=== PATIENT | male | born 1950 | race Caucasian/White ===

== ENCOUNTER → 2017-08-30 | Outpatient (CLI) | payer BC ==
[~2017-08-30] MED LIST: ALBU1AER9 INH; AMLO-114 PO; ASPCH81X PO; DABI150C PO; DIGE1CAP10 PO; FRS/40 PO; LISI40TA PO; MAGN400T6 PO; MISCCAP80 PO; MISCTAB78 PO; MULT-506 PO; SULF800T23 PO; TPRSR/100 PO; [UNRECOGNIZED DRUG - CODE] PO
[2017-08-30 09:49] LABS: BASO % 0.6 %; BASO ABS # 0.03 K/uL (0-0.2); COMPLETE YES; EOS % 6.7 %; HEMATOCRIT 30.5 % (42-52); IG% 0.2 %; LYMPH % 23.7 %; LYMPH ABS # 1.16 K/uL (1.2-3.4); MEAN CELL VOLUME 83.8 fL (80-100); MEAN CORPUSCULAR HEMOGLOBIN 26.9 pg (25-34); MEAN CORPUSCULAR HGB CONC 32.1 g/dl (32-36); MEAN PLATELET VOLUME 8.6 fL (7.4-10.4); MONO % 14.9 %; NEUT % 53.9 %; PLATELET COUNT 230 K/uL (130-400); RED BLOOD COUNT 3.64 M/uL (4.7-6.1)
[2017-08-30 10:19] LABS: AST/SGOT 19 U/L (15-37); BLOOD UREA NITROGEN 12 mg/dl (7-18); BUN/CREATININE RATIO 14.7 (10-20); CALCIUM 8.3 mg/dl (8.5-10.1); CARBON DIOXIDE 26 mmol/L (21-32); CHLORIDE 94 mmol/L (98-107); CREATININE 0.85 mg/dl (0.60-1.40); GLUCOSE 82 mg/dl (70-99); POTASSIUM 4.2 mmol/L (3.5-5.1); SODIUM 126 mmol/L (136-145)
[2017-08-30 10:24] LABS: ALT/SGPT 16 U/L (12-78); CHOLESTEROL 104 mg/dl (0-200); CHOLESTEROL/HDL RATIO 1.3; HDL CHOLESTEROL 79 mg/dl; LDL CHOLESTEROL CALCULATED 20 mg/dl; TOTAL IRON BINDING CAPACITY 346 mcg/dl (250-450); TRIGLYCERIDES 26 mg/dl (0-150); VERY LOW DENSITY LIPOPROT CALC 5 mg/dl
== END | disposition home or self-care (01) ==
LOC: C.LAB 08:37
PROVIDERS: ATTEND Family Medicine
DX: I48.91 Unspecified atrial fibrillation (principal); I11.0 Hypertensive heart disease with heart failure; E87.1 Hypo-osmolality and hyponatremia; I50.32 Chronic diastolic (congestive) heart failure; Z12.5 Encounter for screening for malignant neoplasm of prostate

== ENCOUNTER 2017-11-26 10:12 | Inpatient (IN) | payer BC, OTHER ==
[~2017-11-26] VITALS: Ht 182.9 cm; Wt 106.1 kg
[~2017-11-26 10:12] MED LIST changes: -AMLO-114 PO; -SULF800T23 PO
[2017-11-26 11:13] VITALS: BP_SYST 181; BP_SYST 195; BP_DIAS 116; PULSE 52; TEMP 36.5; O2SAT 100
[2017-11-26] MEDS ORDERED: CLINDAMYCIN IV 600 MG in DEXTROSE 5% 50ML 50 ML IV SCH (11:30)
[2017-11-26] MEDS ORDERED: MAGNESIUM HYDROXIDE SUSP 30 ML UDC PO PRN (11:30)
[2017-11-26] MEDS ORDERED: TRAMADOL HCL 50 MG TAB PO PRN (11:30)
[2017-11-26] MEDS ORDERED: ALBUTEROL HFA 8 GM INHALER INH PRN (11:30)
[2017-11-26] MEDS ORDERED: HEPARIN SOD 5000 UNIT/0.5 ML CARP SQ SCH (11:30)
[2017-11-26] MEDS ORDERED: ZOLPIDEM TARTRATE 5 MG TAB PO PRN (11:30)
[2017-11-26] MEDS ORDERED: ALUMINUM/MAGNESIUM/SIMETH (MAALOX MAX) 30 ML UDC PO PRN (11:30)
[2017-11-26] MEDS ORDERED: ONDANSETRON INJ 2 MG/ML 2 ML VIAL IV PRN (11:30)
[2017-11-26 11:35] VITALS: BP 195/116; PULSE 52; TEMP 36.5; Ht 182.9 cm; Wt 106.1 kg
[2017-11-26] MEDS ORDERED: POLYETHYLENE (MIRALAX) 17 GM PACK PO PRN (11:45)
--- NOTE | 2017-11-26 11:48 | History and Physical ---
History & Physical Date & Time of Service: Nov 26, 2017 at 11:38 Chief Complaint: Bilateral Lower Extremity Cellulitis Primary Care Physician: Luis Angel Griffiths M.D. History of Present Illness Source: patient 67 y/o M Hx diastolic CHF, AF, HTN, Qnwukpw-Uhwqa-Aosrx, chronic LE ulcers. Presents from wound care clinic due to BL lower ext cellulitis. Recent wound cultures did not show any growth, however, cultures from 10/29 revealed MSSA. He denies fevers or rigors. Labs are not available at the time of admission as he was sent directly from the clinic. Past Medical/Surgical History 1) Chronic diastolic CHF 2) Atrial fibrillation 3) Hyponatremia 4) HTN 5) Chronic AF 6) Sigmoid volvulus 7) Bvzkxyu-Vnvkb-Igagd Family History Father with CMT - at age 94 Social History Smoking Status: Never Smoker Drug Use: none Marital Status: Occupational Status: retired Allergies Coded Allergies: Ampicillin (Verified Allergy, Unknown, rash, 05/24/17) Sulbactam (Verified Allergy, Unknown, rash, 05/24/17) Home Medications Scheduled Aspirin (Aspirin Chewable), 81 MG PO QAM Dabigatran Etexilate Mesylate (Pradaxa), 150 MG PO BID Digestive Enzymes (Digestive Enzyme), 1 CAP PO QAM Furosemide (Lasix), 1 TAB PO QAM Lisinopril (Zestril), 80 MG PO QAM Magnesium Oxide (Mag-Ox), 3 TAB PO BID Metoprolol Succinate (Metoprolol Succinate ER), 1 TAB PO QAM Misc Natural Products (Osteo Bi-Flex Advanced Do), 1 TAB PO QAM Multivitamin (Multivitamin), 1 TAB PO QAM Probiotic Product (Probiotic), 1 CAP PO QAM Simethicone (Cvs Gas Relief), 1 TAB PO QAM Scheduled PRN Albuterol (Proair Hfa), 1-2 PUFFS INH BID PRN for Shortness of Breath Review of Systems Constitutional: No fever, No chills, No sweats Eyes: No worsening of vision ENT: No hearing loss, No unusual epistaxis, No nasal symptoms Respiratory: No cough, No sputum, No wheezing Cardiovascular: No chest pain Abdomen: No pain, No nausea, No vomiting Musculoskeletal: No joint pain Genitourinary - Male: No hematuria, No dysuria Neurologic: + weakness (chronic LE weakness), No memory loss, No paralysis Psychiatric: No depression symptoms Endocrine: No fatigue Hematologic / Lymphatic: No abnormal bleeding/bruising Integumentary: + rash (LE cellulitis and chronic ulcers as above) Physical Exam Vital Signs Date Time Temp Pulse Resp B/P (MAP) Pulse Ox O2 Delivery O2 Flow Rate FiO2 11/26/17 11:13 36.5 52 18 181/116 (137) 100 Room Air 195/116 (142) General Appearance: WD/WN, no apparent distress Head: normocephalic Eyes: normal inspection ENT: normal ENT inspection, pharynx normal Neck: supple, no JVD Respiratory/Chest: chest non-tender, lungs clear, normal breath sounds Cardiovascular: no edema, no gallop, + irregularly irregular Abdomen/GI: normal bowel sounds, non tender, soft Back: normal inspection, no CVA tenderness Extremities/Musculoskelatal: + pedal edema (Significant BL edema - stasis changes - moderate ulcers on mid lower ext - ant on L - lat on R) Neurologic/Psych: business analytics manager II-XII nml as tested, no motor/sensory deficits, alert, oriented x 3 Skin: + pertinent finding (Stasis changes with hyperpigmentaion - moderate ulcers on mid lower ext - ant on L - lat on R - minimal cellulitis extedning from wounds) Diagnostics Laboratory Results Results Past 24 Hours Test 11/26/17 11:26 Range/Units Impression Assessment and Plan 67 y/o M Hx diastolic CHF, AF, HTN, Umykszl-Qqiuu-Sytax, chronic LE ulcers. Presents from wound care clinic due to BL lower ext cellulitis. Recent wound cultures did not show any growth, however, cultures from 10/29 revealed MSSA. He denies fevers or rigors. 1) Lower extremity cellulitis. Pending results of repeat cultures, the pt is placed on Vanc and Ceftriaxone. We will consult wound care. There does not appear to be indication for debridement at present. 2) CHF - chronic diastolic - Cont B ja and Lasix. 3) HTN - Metoprolol, Lisinopril, Lasix 4) AF - anticoagulated with Pradaxa - rate controlled with Metoprolol 5) History of hypoNa - labs pending on admission full code - Pradaxa prophylaxis Total time for this admit including review of labs, meds, records - discussion with pt - 36 min Level of Care Med/Surg Resuscitation Status FULL RESUSCITATION VTE Prophylaxis VTE Risk Assessment Done? Y/N: Yes Risk Level: Moderate Given or contraindicated: Other Anticoagulation
[2017-11-26] MEDS ORDERED: VANCOMYCIN CONSULT ACTIVE PRN (12:00)
[2017-11-26 12:10] LABS: HEMATOCRIT 33.1 % (42-52); HEMOGLOBIN 10.9 g/dL (14.0-18.0); MEAN CELL VOLUME 84.9 fL (80-100); MEAN CORPUSCULAR HEMOGLOBIN 27.9 pg (25-34); MEAN CORPUSCULAR HGB CONC 32.9 g/dl (32-36); RED CELL DISTRIBUTION WIDTH SD 49.6 fL (36.4-46.3); WHITE BLOOD COUNT 7.37 K/uL (4.8-10.8)
[2017-11-26 12:29] LABS: MEAN PLATELET VOLUME 9.2 fL (7.4-10.4); PLATELET COUNT 70 K/uL (130-400)
[2017-11-26 12:30] LABS: CALCIUM 8.5 mg/dl (8.5-10.1); CREATININE 0.69 mg/dl (0.60-1.40); POTASSIUM 3.8 mmol/L (3.5-5.1)
--- NOTE | 2017-11-26 12:43 | Pharmacy Progress Note ---
Pharmacy Abx Initial Consult Date of Service Nov 26, 2017. Pharmacy Dosing Scope Date of Consult: 11/26/17 Consultation requested by: Dr. Rodriguez Pharmacy is consulted to initiate vancomycin IV dosing therapy, order appropriate labs and adjust drug dose/frequency. Subjective The patient is a 67 year old male admitted on Nov 26, 2017 at 10:56. Objective Height (Feet): 6 Height (Inches): 0.00 Weight (Kilograms): 106.360 Vital Signs (Past 12Hrs) Vital Signs Past 12 Hours Date Time Temp Pulse Resp B/P (MAP) Pulse Ox O2 Delivery O2 Flow Rate FiO2 11/26/17 11:35 36.5 52 18 195/116 Room Air 11/26/17 11:13 36.5 52 18 181/116 (137) 100 Room Air 195/116 (142) Lab Results (24Hrs) Laboratory Tests (24 Hours) Test 11/26/17 11:43 White Blood Count 7.37 K/uL (4.8-10.8) Risk Factors for Resistance * follows with wound clinic so at risk for MRSA Assessment & Plan Assessment 67 year old male with a PMH of CHF, Afib, and HTN admitted with worsening chronic wound infection. All previous cultures have grown MSSA> Plan vancomycin for treatment of SSTI Vancomycin IV * Loading dose: 2750 mg (25 mg/kg) * Maintenance dose: 1500 mg IV (15 mg/kg) every 10 hours (population pharmacokinetics suggests patient has half-life of 8 hours... due to lower trough needed less aggressive regimen utilized) * Goal trough level for SSTI without history of MRSA : 10 to 15 mcg/mL * Trough ordered for 11/28/17 Pharmacy will continue to follow and will adjust dose/frequency as necessary. Thank you.
[2017-11-26] MEDS ORDERED: VANCOMYCIN IV 2,750 MG in SODIUM CHLORIDE 0.9% 500ML 500 ML IV ONE (13:00)
[2017-11-26] MEDS: CEFTRIAXONE SOD INJ 1 GM in DEXTROSE 5% ADD-VANTAGE 50ML 50 ML IV SCH (14:15)
[2017-11-26 15:40] VITALS: BP 175/86; PULSE 56; TEMP 37.2; O2SAT 97
[2017-11-26 16:00] VITALS: O2SAT 97
--- NOTE | 2017-11-26 16:38 | NUR ---
SYMONE received WO notification for skin breakdown, at risk nutrition screen completed. Addendum: 11/26/17 at [address] Amended: Links added.
[2017-11-26] MEDS ORDERED: DAPTOMYCIN CONSULT ACTIVE PRN (18:00)
--- NOTE | 2017-11-26 18:00 | NUR ---
A: Vancomycin Discontinued by MD after patient had a reaction of hives to the arm that had the vancomycin infusing into it. The rash developed soon after starting the vancomycin and was itchy. On assessment the vancomycin was stopped immediately. Pt denies respiratory distress and the rash quickly disappeared after the vancomycin was removed. MD made aware. Will continue to monitor.
[2017-11-26 19:00] VITALS: BP 174/90
[2017-11-26] MEDS ORDERED: DAPTOmycin IV 425 MG in SODIUM CHLORIDE 0.9% 50ML 50 ML IV SCH (19:00)
[2017-11-26] MEDS: HydrALAZINE HCL 20 MG/ML VIAL IV. PRN (19:02)
[2017-11-26] MEDS: DAPTOmycin IV 450 MG in SYRINGE 0 ML IV SCH (19:05)
[2017-11-26] MEDS: ACETAMINOPHEN 325 MG TAB PO PRN (19:51)
[2017-11-26] MEDS: DABIGATRAN ELEXILATE 75 MG CAP PO SCH (19:55)
[2017-11-26] MEDS: MAGNESIUM OXIDE 400 MG TAB PO SCH (19:56)
[2017-11-26] MEDS ORDERED: VANCOMYCIN IV 1,500 MG in SODIUM CHLORIDE 0.9% 500ML 500 ML IV SCH (23:00)
[2017-11-26 23:55] VITALS: BP 154/89; PULSE 62; TEMP 36.6; O2SAT 96
--- NOTE | 2017-11-27 00:24 | NUR ---
ID Note: patient resting in bed. alert and oriented x4. no complaints of pain at this time. IV SL. lungs clear on RA, denies cough, shortness of breath or chest pain. positive bowel sounds, denies flatus, nausea/vomiting. tolerating AHA diet. pulses palpable, c/o baseline numbness BLE, denies tingling. oob with 1 assist and walker/braces. discharge uncertain at this time. call mclain in reach. will continue to monitor.
[2017-11-27 07:24] VITALS: BP 169/91; PULSE 47; TEMP 36.9; O2SAT 98
[2017-11-27 07:35] VITALS: PULSE 62
[2017-11-27] MEDS: ASPIRIN 81 MG ECTAB PO SCH (07:38)
[2017-11-27] MEDS: MAGNESIUM OXIDE 400 MG TAB PO SCH ×2 (07:38→19:48)
[2017-11-27] MEDS: LACTOBACILLUS ACIDOPHILUS (FLORANEX) TAB PO SCH (07:39)
[2017-11-27] MEDS: FUROSEMIDE 40 MG TAB PO SCH (07:39)
[2017-11-27] MEDS: METOPROLOL SUCC 50MG EXT REL TAB PO SCH (07:39)
[2017-11-27] MEDS: LISINOPRIL 40 MG TAB PO SCH (07:39)
[2017-11-27] MEDS: DABIGATRAN ELEXILATE 75 MG CAP PO SCH ×2 (07:39→19:47)
[2017-11-27] MEDS ORDERED: SIMETHICONE 80 MG CHEW PO SCH (08:00)
[2017-11-27 08:36] LABS: CALCIUM 8.5 mg/dl (8.5-10.1); POTASSIUM 3.3 mmol/L (3.5-5.1)
[2017-11-27] MEDS: SIMETHICONE 80 MG CHEW PO SCH (08:36)
[2017-11-27 08:40] LABS: HEMOGLOBIN 10.9 g/dL (14.0-18.0); MEAN CELL VOLUME 85.1 fL (80-100); MEAN CORPUSCULAR HEMOGLOBIN 28.1 pg (25-34); RED CELL DISTRIBUTION WIDTH CV 16.1 % (11.5-14.5); RED CELL DISTRIBUTION WIDTH SD 50.2 fL (36.4-46.3); WHITE BLOOD COUNT 4.22 K/uL (4.8-10.8)
[2017-11-27 08:43] LABS: MEAN PLATELET VOLUME 9.5 fL (7.4-10.4); PLATELET COUNT 74 K/uL (130-400)
[2017-11-27 08:45] LABS: CREATININE 0.64 mg/dl (0.60-1.40)
--- NOTE | 2017-11-27 09:34 | Progress Note ---
Progress Note Date of Service Nov 27, 2017. Progress Note ID Consult Dictated #[id number] A/P: 1. LE cellulitis -Agree with dapto and rocephin, follow cultures -Local wound care -thank you
--- NOTE | 2017-11-27 10:00 | NUR ---
Dressing changed to bilateral lower extremities. Bilateral legs cleansed with saline. Aquacel AG applied to ulcerations/wounds on both legs. 4X4 applied, Kerlix applied. Dressings dated, timed and initialed. Pt tolerated dressing change fine.
--- NOTE | 2017-11-27 10:34 | INFECT. DISEASE CONSULTATION ---
DATE OF CONSULTATION: 11/27/2017 HISTORY OF PRESENT ILLNESS: The patient was admitted yesterday from the wound care center for worsening right lower extremity ulceration. His was at the bedside during my examination. She states he has been on Differin and antibiotics most recently, she believes doxycycline for chronic left and right lower extremity ulcerations. There are new ulcerations on the right, which are painful, which are what led to his hospitalization yesterday. She states he has been off of antibiotics for at least 1-1/2 to 2 weeks. He did have some subjective fevers and chills at home prior to admission. He is still having some pain in the right lower extremity. His dressings are in place; however, there are some areas of dried blood. They do admit weeping drainage from the area. A wound culture was sent from the wound center yesterday; however, it does not appear that a specimen was received in the micro lab. He was started on Rocephin and vancomycin yesterday, but had some rash on his arm. He states he has tolerated this multiple times in the past. His vancomycin was subsequently held and now daptomycin was ordered. Because of this, an ID consult was warranted. He was not seen by ID in the wound center prior to this. He currently is afebrile. He has no chest pain, cough, shortness of breath, nausea, vomiting, or diarrhea. His remaining review of systems is unremarkable. PAST MEDICAL HISTORY: Significant for congestive heart failure, AFib, hypertension, Lhjvuui-Qmtaf-Lmsjv, chronic lower extremity ulcers for which he follows at the wound care center. His most recent culture from the grew MSSA, which was resistant to clindamycin and doxycycline. A culture on November 12 was no growth and final. His culture yesterday does not appear to have been received in the lab. FAMILY HISTORY: Noncontributory. SOCIAL HISTORY: Negative for tobacco use, alcohol use or drug use. ALLERGIES: HE HAS ALLERGY TO UNASYN. MEDICATIONS: Include aspirin, Lasix, lisinopril, Toprol-XL, Floranex, Pradaxa, daptomycin, hydralazine, Rocephin, MiraLax, Tylenol, Maalox, milk of magnesia, Ambien, Zofran, albuterol, and Ultram. PHYSICAL EXAMINATION: VITAL SIGNS: He is afebrile, pulse 62, respiratory rate 18, blood pressure 169/91, oxygen saturation is 98% on room air. GENERAL: He is awake, alert, and oriented x3. He is in no acute distress. HEENT: Mucous membranes are moist. Extraocular muscles are intact. HEART: Regular. LUNGS: Clear bilaterally. ABDOMEN: Soft, nontender, and nondistended. EXTREMITIES: There are bilateral lower extremity dressings. SKIN: There are chronic skin ulceration changes. LABORATORY STUDIES: CBC today reveals a white blood cell count of 4.2, hemoglobin 10.9 and platelets of 74. Chemistry panel reveals a sodium of 128, potassium 3.3, chloride 92, bicarbonate 32, BUN 10, creatinine 0.6 and glucose of 90. No cultures were obtained. No imaging was done. ASSESSMENT AND PLAN: Chronic lower extremity ulcerations with history of methicillin-sensitive Staphylococcus aureus. Repeat wound culture should be sent as it does not appear that the wound culture was received from the wound center yesterday. He will remain on Rocephin and daptomycin, pending additional micro data. Thank you for this consultation.
[2017-11-27] MEDS ORDERED: POTASSIUM CHLORIDE 20 MEQ TABCR PO ONE (11:56)
[2017-11-27] MEDS: CEFTRIAXONE SOD INJ 1 GM in DEXTROSE 5% ADD-VANTAGE 50ML 50 ML IV SCH (12:37)
--- NOTE | 2017-11-27 12:43 | Hospitalist Progress Note ---
Hospitalist Progress Note Date of Service Nov 27, 2017. Subjective Pt evaluation today including: conversation w/ patient, conversation w/ family ( at bedside), physical exam, chart review, lab review, review of inpatient medication list Pain: RLE sore PO Intake: Tolerating PO diet Voiding: no voiding problems Patient seen with at bedside. requests to change patient's dressings on lower extremities herself as she does them at home. Will provide necessary materials as wound care not currently in house. The patient states that he believes he may have been feverish a few days ago when he had chills and sweats but could not check his temperature. He has not had any further fevers since then. He does complain of intermittent dull pain in his right lower extremity, particularly the back of his calf. This pain is exacerbated by pressure/ palpation. He notes that his right lower leg appears more swollen and red than usual. The patient reports chronic numbness in his feet bilaterally. The patient denies fevers, chills, sweats, chest pain, palpitations, claudication, cough, wheezing, shortness of breath, nausea, vomiting, abdominal pain, dysuria , hematuria, urinary retention, paralysis, weakness. Additional Comments: See HPI for pertinent positives and negatives. All other systems reviewed and negative. Objective Vital Signs Date Time Temp Pulse Resp B/P (MAP) Pulse Ox O2 Delivery O2 Flow Rate FiO2 11/27/17 08:00 Room Air 11/27/17 07:35 62 11/27/17 07:24 36.9 47 18 169/91 (117) 98 11/26/17 23:55 36.6 62 20 154/89 (110) 96 Room Air 11/26/17 23:40 Room Air 11/26/17 19:00 174/90 (118) 11/26/17 16:00 97 Room Air 11/26/17 15:40 37.2 56 18 175/86 (115) 97 Room Air 11/26/17 13:45 Room Air Physical Exam Notes: General appearance: +Obese. Well-developed, well-nourished, no apparent distress Head: Normocephalic, atraumatic Eyes: Normal inspection, PERRL, EOMI ENT: Normal ENT inspection, hearing grossly normal, pharynx normal Neck: Supple, no JVD, trachea midline Respiratory/Chest: Lungs clear to auscultation, normal breath sounds, no respiratory distress Cardiovascular: +Irregularly irregular, rate controlled. No gallop, no murmur Abdomen/GI: +Distended. This is a chronic cyclical issue. Umbilical hernia. Normal bowel sounds, non-tender Extremities/Musculoskeletal: +1+ pitting edema. RLE with open wound at back of calf with surrounding erythema/dusky color. Warm to the touch and tender to palpation. Chronic venous stasis changes bilaterally. Neurological/Psych: Alert, normal mood/affect, oriented x 3 Skin: Normal color, warm/dry, no rash Laboratory Results Last 24 Hours Test 11/27/17 07:25 White Blood Count 4.22 K/uL Red Blood Count 3.88 M/uL Hemoglobin 10.9 g/dL Hematocrit 33.0 % Mean Corpuscular Volume 85.1 fL Mean Corpuscular Hemoglobin 28.1 pg Mean Corpuscular Hemoglobin Concent 33.0 g/dl RDW Standard Deviation 50.2 fL RDW Coefficient of Variation 16.1 % Platelet Count 74 K/uL Mean Platelet Volume 9.5 fL Sodium Level 128 mmol/L Potassium Level 3.3 mmol/L Chloride Level 92 mmol/L Carbon Dioxide Level 32 mmol/L Anion Gap 5.0 mmol/L Blood Urea Nitrogen 10 mg/dl Creatinine 0.64 mg/dl Est Creatinine Clear Calc Drug Dose 144.9 ml/min Estimated GFR () 119.1 Estimated GFR (Non- 102.7 BUN/Creatinine Ratio 15.1 Random Glucose 90 mg/dl Calcium Level 8.5 mg/dl Assessment and Plan 67 y/o male with history of a-fib, HTN, chronic diastolic CHF, Charcot-Emely- Tooth, chronic hyponatremia, BPH, iron deficiency anemia, chronic LE ulcers and colitis who presents from the wound care clinic with cellulitis. Right lower extremity cellulitis, chronic LE ulcers--ongoing -Admit to med/surg -Initially started on vancomycin but developed hives/itching at IV site. Vanc d /c'd and added to allergy list -Continue daptomycin and Rocephin 1 gm IV qd -Infectious disease consulted, appreciate recs: continue current abx pending further micro studies -Outpatient wound culture from 11/26 positive for staph aureus, sensitivities pending -Wound care nurse consulted -Pt debrided by Dr. Cartagena prior to arrival on 11/26 A-fib, HTN, chronic diastolic CHF--stable. Rate controlled, no acute exacerbation of CHF. BP improving -Continue ASA, Pradaxa 150 mg PO BID, Toprol XL 100 mg PO qd, lisinopril 80 mg PO qd, and Lasix 40 mg PO qd Hypokalemia -Potassium 3.3 on 11/27 -KCl 20 mEq PO BID, one dose now Hyponatremia--stable, at baseline Iron deficiency anemia--stable, hgb at baseline -Iron studies pending Abdominal distention, colitis--chronic, ongoing. Unknown etiology of colitis, although outpt records state ulcerative colitis, recent colonoscopy April 2017 just shows redundant and tortuous colon -Continue simethicone, digestive enzymes, fleet enema 3x/week DVT prophylaxis -Pradaxa Code Status -Level I, FULL RESUSCITATION STATUS
[2017-11-27 15:56] VITALS: BP 168/92; PULSE 52; TEMP 36.8; O2SAT 97
[2017-11-27] MEDS: ACETAMINOPHEN 325 MG TAB PO PRN ×2 (16:54→22:38)
--- NOTE | 2017-11-27 17:00 | NUR ---
A: Pt's s/o requested Coban Lite and Cast Padding for compression dressing d/t not having any at home. Both items placed in room for s/o to apply in morning. Will monitor.
[2017-11-27] MEDS: DAPTOmycin IV 450 MG in SYRINGE 0 ML IV SCH (19:46)
[2017-11-27] MEDS: POTASSIUM CHLORIDE 20 MEQ TABCR PO SCH (19:48)
[2017-11-27] MEDS: HydrALAZINE HCL 20 MG/ML VIAL IV. PRN (22:39)
[2017-11-27 22:44] VITALS: BP 166/111; PULSE 60
[2017-11-27 23:27] VITALS: BP 149/85; PULSE 51; TEMP 36.5; O2SAT 95
--- NOTE | 2017-11-28 01:40 | NUR ---
ID NOTE: Alert and oriented x4. Tolerating an AHA diet. Ambulates with 1 assist. IV is saline locked. Voiding without difficulty. No complaints of pain. Discharge plans uncertain at this time.
[2017-11-28] MEDS ORDERED: VANCOMYCIN TROUGH ONE (04:30)
[2017-11-28 05:23] LABS: HEMATOCRIT 31.6 % (42-52); HEMOGLOBIN 10.5 g/dL (14.0-18.0); MEAN CELL VOLUME 84.9 fL (80-100); MEAN CORPUSCULAR HEMOGLOBIN 28.2 pg (25-34); MEAN CORPUSCULAR HGB CONC 33.2 g/dl (32-36); RED CELL DISTRIBUTION WIDTH CV 15.9 % (11.5-14.5); RED CELL DISTRIBUTION WIDTH SD 49.2 fL (36.4-46.3); WHITE BLOOD COUNT 3.71 K/uL (4.8-10.8)
[2017-11-28 05:25] LABS: MEAN PLATELET VOLUME 9.1 fL (7.4-10.4); PLATELET COUNT 76 K/uL (130-400)
[2017-11-28 05:50] LABS: CALCIUM 8.3 mg/dl (8.5-10.1); CREATININE 0.72 mg/dl (0.60-1.40); POTASSIUM 3.8 mmol/L (3.5-5.1)
[2017-11-28 07:08] VITALS: BP 182/92; PULSE 58; TEMP 36.5; O2SAT 96
[2017-11-28] MEDS: METOPROLOL SUCC 50MG EXT REL TAB PO SCH (07:40)
[2017-11-28] MEDS: LACTOBACILLUS ACIDOPHILUS (FLORANEX) TAB PO SCH (07:40)
[2017-11-28] MEDS: ASPIRIN 81 MG ECTAB PO SCH (07:40)
[2017-11-28] MEDS: MAGNESIUM OXIDE 400 MG TAB PO SCH ×2 (07:41→19:28)
[2017-11-28] MEDS: FUROSEMIDE 40 MG TAB PO SCH (07:41)
[2017-11-28] MEDS: POTASSIUM CHLORIDE 20 MEQ TABCR PO SCH ×2 (07:41→19:27)
[2017-11-28] MEDS: SIMETHICONE 80 MG CHEW PO SCH (07:41)
[2017-11-28] MEDS: DABIGATRAN ELEXILATE 75 MG CAP PO SCH ×2 (07:41→19:28)
[2017-11-28] MEDS: LISINOPRIL 40 MG TAB PO SCH (07:41)
[2017-11-28] MEDS ORDERED: SOD PHOSPHATE/SOD BIPHOSPHATE ENEMA 132 ML BTL PR PRN (08:00)
[2017-11-28 12:15] VITALS: BP 168/86; PULSE 60
[2017-11-28] MEDS: CEFTRIAXONE SOD INJ 1 GM in DEXTROSE 5% ADD-VANTAGE 50ML 50 ML IV SCH (12:19)
[2017-11-28] MEDS: HydrALAZINE HCL 20 MG/ML VIAL IV. PRN (12:19)
[2017-11-28] MEDS: ACETAMINOPHEN 325 MG TAB PO PRN ×2 (12:19→22:09)
--- NOTE | 2017-11-28 13:13 | Progress Note ---
Subjective Date of Service: Nov 28, 2017. Subjective Pt evaluation today including: conversation w/ patient, conversation w/ family (), physical exam, lab review, review of inpatient medication list Pain: pain in right leg PO Intake: adequate Voiding: no voiding problems right leg press and blow machine tender, but redness and warmth decreased left leg now dressed appropriately by eating well, planning for Fleets Enema today to move bowels wound culture with MSSA, will defer to infectious disease for final recommendations Review of Systems Constitutional: + weakness, + fatigue Cardiac: + edema Musculoskeletal: + problem reported (right lower leg pain) Skin: + rash (venous stasis changes, right leg erythema, multiple lesions) All Other Systems: Reviewed and Negative Medications Current Inpatient Medications Medications (Trade) Dose Ordered Sig/Keren Route Start Time Stop Time Status Last Admin Dose Admin Acetaminophen (Tylenol Tab) 650 mg Q4H PRN PO 11/26/17 11:30 12/26/17 11:29 11/28/17 12:19 650 MG Al Hydrox/Mg Hydrox/Simethicone (Maalox Max Susp) 15 ml Q4H PRN PO 11/26/17 11:30 12/26/17 11:29 Magnesium Hydroxide (Milk Of Magnesia Susp) 30 ml Q6H PRN PO 11/26/17 11:30 12/26/17 11:29 Polyethylene (Miralax Powder Packet) 17 gm DAILY PRN PO 11/26/17 11:45 12/26/17 11:44 Zolpidem Tartrate (Ambien Tab) 5 mg HSZ PRN PO 11/26/17 11:30 12/26/17 11:29 Ondansetron HCl (Zofran Inj) 4 mg Q6H PRN IV 11/26/17 11:30 12/26/17 11:29 Albuterol (Ventolin Hfa Inhaler) 2 puffs Q6H PRN INH 11/26/17 11:30 12/26/17 11:29 Aspirin (Ecotrin Tab) 81 mg QAM PO 11/27/17 08:00 12/27/17 07:59 11/28/17 07:40 81 MG Dabigatran (Pradaxa Cap) 150 mg BID PO 11/26/17 20:00 12/26/17 19:59 11/28/17 07:41 150 MG Furosemide (Lasix Tab) 40 mg QAM PO 11/27/17 08:00 12/27/17 07:59 11/28/17 07:41 40 MG Lisinopril (Zestril Tab) 80 mg QAM PO 11/27/17 08:00 12/27/17 07:59 11/28/17 07:41 80 MG Magnesium Oxide (Mag-Ox Tab) 1,200 mg BID PO 11/26/17 20:00 12/26/17 19:59 11/28/17 07:41 1,200 MG Metoprolol Succinate (Toprol Xl Tab) 100 mg QAM PO 11/27/17 08:00 12/27/17 07:59 11/28/17 07:40 100 MG Lactobacillus Acidophilus (Floranex Tab) 1 tab QAM PO 11/27/17 08:00 12/27/17 07:59 11/28/17 07:40 1 TAB Tramadol HCl (Ultram Tab) 50 mg Q4H PRN PO 11/26/17 11:30 12/26/17 11:29 Ceftriaxone Sodium 1 gm/ Dextrose 50 ml @ 100 mls/hr Q24H IV 11/26/17 12:00 12/06/17 11:44 11/28/17 12:19 100 MLS/HR Hydralazine HCl (HydrALAZINE INJ) 5 mg Q8H PRN IV. 11/26/17 17:45 12/26/17 17:44 11/28/17 12:19 5 MG Daptomycin 450 mg/ Syringe 9 ml @ 4.5 mls/min DAILY@1900 IV 11/26/17 19:00 12/06/17 18:59 11/27/17 19:46 4.5 MLS/MIN Daptomycin (Consult) 1 ea UD PRN N/A 11/26/17 18:00 12/26/17 17:59 Simethicone (Mylicon Chew Tab) 120 mg QAM PO 11/27/17 08:00 12/27/17 07:59 11/28/17 07:41 120 MG Potassium Chloride (Klor-Con Tab) 20 meq BID PO 11/27/17 20:00 11/29/17 08:01 11/28/17 07:41 20 MEQ Sodium Biphosphate/ Sodium Phosphate (Fleet Enema) 132 ml DAILY PRN MO 11/28/17 08:00 12/28/17 07:59 11/28/17 10:34 132 ML Miscellaneous Information (Order Awaiting Action) 1 ea QS N/A 11/27/17 16:00 12/27/17 15:59 Objective Vital Signs Date Time Temp Pulse Resp B/P (MAP) Pulse Ox O2 Delivery O2 Flow Rate FiO2 11/28/17 12:15 60 168/86 (113) 11/28/17 08:00 Room Air 11/28/17 07:08 36.5 58 16 182/92 (122) 96 Room Air 11/27/17 23:35 Room Air 11/27/17 23:27 36.5 51 17 149/85 (106) 95 Room Air 11/27/17 22:44 60 166/111 (129) 11/27/17 16:00 Room Air 11/27/17 15:56 36.8 52 18 168/92 (117) 97 Room Air Physical Exam General Appearance: no apparent distress, + obese Eyes: normal inspection, EOMI, sclerae normal ENT: normal ENT inspection, hearing grossly normal, pharynx normal Neck: supple, no adenopathy, no JVD, trachea midline Respiratory/Chest: chest non-tender, lungs clear, normal breath sounds, no respiratory distress, no accessory muscle use Cardiovascular: regular rate, rhythm, no gallop, no JVD, no murmur Abdomen: normal bowel sounds, non tender, soft, no organomegaly Extremities: normal range of motion, no calf tenderness, normal capillary refill, pelvis stable, + pedal edema, + swelling Neurologic/Psychiatric: herb doctor II-XII nml as tested, no motor/sensory deficits, alert, normal mood/affect, oriented x 3 Skin: + rash (venous stasis changes bilaterally, erythema on the right, no warmth today, was very hot yesterday) Laboratory Results Last 24 Hours Test 11/28/17 05:13 White Blood Count 3.71 K/uL Red Blood Count 3.72 M/uL Hemoglobin 10.5 g/dL Hematocrit 31.6 % Mean Corpuscular Volume 84.9 fL Mean Corpuscular Hemoglobin 28.2 pg Mean Corpuscular Hemoglobin Concent 33.2 g/dl RDW Standard Deviation 49.2 fL RDW Coefficient of Variation 15.9 % Platelet Count 76 K/uL Mean Platelet Volume 9.1 fL Sodium Level 129 mmol/L Potassium Level 3.8 mmol/L Chloride Level 94 mmol/L Carbon Dioxide Level 32 mmol/L Anion Gap 3.0 mmol/L Blood Urea Nitrogen 11 mg/dl Creatinine 0.72 mg/dl Est Creatinine Clear Calc Drug Dose 128.8 ml/min Estimated GFR () 113.5 Estimated GFR (Non- 97.9 BUN/Creatinine Ratio 15.3 Random Glucose 93 mg/dl Calcium Level 8.3 mg/dl Iron Level 24 mcg/dl Total Iron Binding Capacity 227 mcg/dl Ferritin 76.8 ng/ml Assessment and Plan 67 y/o male with history of a-fib, HTN, chronic diastolic CHF, Charcot-Emely- Tooth, chronic hyponatremia, BPH, iron deficiency anemia, chronic LE ulcers and colitis who presents from the wound care clinic with cellulitis. Right lower extremity cellulitis, chronic LE ulcers--ongoing -Admit to med/surg -Initially started on vancomycin but developed hives/itching at IV site. Vanc d /c'd and added to allergy list -Continue daptomycin and Rocephin 1 gm IV qd -Infectious disease consulted, appreciate recs: will follow up today -Outpatient wound culture from 11/26 positive for MSSA will defer to ID for final recommendation - given severity of cellulitis initially, would continue IV antibiotics today - there are signs of improvement, no warmth today -Wound care nurse consulted -Pt debrided by Dr. Cartagena prior to arrival on 11/26 A-fib, HTN, chronic diastolic CHF--stable. Rate controlled, no acute exacerbation of CHF. BP improving -Continue ASA, Pradaxa 150 mg PO BID, Toprol XL 100 mg PO qd, lisinopril 80 mg PO qd, and Lasix 40 mg PO qd Hypokalemia - resolved, K is 3.8 today Hyponatremia--stable, at baseline Iron deficiency anemia--stable, hgb at baseline - iron is low but ferritin is in 70's Abdominal distention, colitis--chronic, ongoing. Unknown etiology of colitis, although outpt records state ulcerative colitis, recent colonoscopy April 2017 just shows redundant and tortuous colon -Continue simethicone, digestive enzymes, fleet enema 3x/week DVT prophylaxis -Pradaxa Code Status -Level I, FULL RESUSCITATION STATUS discussed with patient and that depending on ID recommendations, he may be ready for discharge tomorrow
[2017-11-28 15:25] VITALS: BP 152/74; PULSE 62; TEMP 36.7; O2SAT 99
[2017-11-28] MEDS ORDERED: NURSING VERBAL MED ORDER ONE (18:15)
[2017-11-28] MEDS: DIGESTIVE ENZYME PO SCH (18:30)
[2017-11-28] MEDS: DAPTOmycin IV 450 MG in SYRINGE 0 ML IV SCH (19:29)
[2017-11-28 23:47] VITALS: BP 173/74; PULSE 55; TEMP 36.7; O2SAT 97
--- NOTE | 2017-11-29 | NUR ---
ID: Pt AAO x 4, VSS on RA. OOB with supervision. Contact precaution in placed. Denies pain. Verbalized no needs at this time. See EMR for full assessment. Call mclain within reach. Discharge plan is to return home when medically stable. Will monitor.
[2017-11-29 06:44] LABS: HEMOGLOBIN 10.5 g/dL (14.0-18.0); MEAN CELL VOLUME 84.6 fL (80-100); MEAN CORPUSCULAR HEMOGLOBIN 26.9 pg (25-34); MEAN CORPUSCULAR HGB CONC 31.8 g/dl (32-36); RED CELL DISTRIBUTION WIDTH CV 15.9 % (11.5-14.5); RED CELL DISTRIBUTION WIDTH SD 49.4 fL (36.4-46.3); WHITE BLOOD COUNT 3.94 K/uL (4.8-10.8)
[2017-11-29 06:45] LABS: MEAN PLATELET VOLUME 8.8 fL (7.4-10.4); PLATELET COUNT 80 K/uL (130-400)
[2017-11-29] MEDS: SIMETHICONE 80 MG CHEW PO SCH (07:07)
[2017-11-29] MEDS: LISINOPRIL 40 MG TAB PO SCH (07:08)
[2017-11-29] MEDS: ASPIRIN 81 MG ECTAB PO SCH (07:08)
[2017-11-29] MEDS: DIGESTIVE ENZYME PO SCH ×3 (07:08→17:06)
[2017-11-29] MEDS: FUROSEMIDE 40 MG TAB PO SCH (07:08)
[2017-11-29] MEDS: LACTOBACILLUS ACIDOPHILUS (FLORANEX) TAB PO SCH (07:08)
[2017-11-29] MEDS: MAGNESIUM OXIDE 400 MG TAB PO SCH ×2 (07:08→20:37)
[2017-11-29] MEDS: DABIGATRAN ELEXILATE 75 MG CAP PO SCH ×2 (07:08→20:37)
[2017-11-29] MEDS: METOPROLOL SUCC 50MG EXT REL TAB PO SCH (07:08)
[2017-11-29] MEDS: POTASSIUM CHLORIDE 20 MEQ TABCR PO SCH (07:08)
[2017-11-29 07:13] LABS: CALCIUM 8.4 mg/dl (8.5-10.1); CREATININE 0.71 mg/dl (0.60-1.40); POTASSIUM 4.2 mmol/L (3.5-5.1)
[2017-11-29 07:24] VITALS: BP 149/76; PULSE 56; TEMP 36.7; O2SAT 98
--- NOTE | 2017-11-29 07:45 | Family Medicine Progress Note ---
Progress Note Date of Service Nov 29, 2017. Subjective Pt evaluation today including: conversation w/ family, chart review, lab review , review of studies Pain: denies PO Intake: adequate Voiding: no voiding problems No acute events overnight. Patient denies Fevers chills, Chest pain, Sob, N/V diarrhea. Constitutional: No fever, No chills Respiratory: No cough, No shortness of breath Cardiovascular: No chest pain, No edema, No palpitations Abdomen: No pain, No nausea, No vomiting, No diarrhea Male : No dysuria, No urinary frequency Skin: No rash, No itch Medications Current Inpatient Medications Medications (Trade) Dose Ordered Sig/Keren Route Start Time Stop Time Status Last Admin Dose Admin Acetaminophen (Tylenol Tab) 650 mg Q4H PRN PO 11/26/17 11:30 12/26/17 11:29 11/28/17 22:09 650 MG Al Hydrox/Mg Hydrox/Simethicone (Maalox Max Susp) 15 ml Q4H PRN PO 11/26/17 11:30 12/26/17 11:29 Magnesium Hydroxide (Milk Of Magnesia Susp) 30 ml Q6H PRN PO 11/26/17 11:30 12/26/17 11:29 Polyethylene (Miralax Powder Packet) 17 gm DAILY PRN PO 11/26/17 11:45 12/26/17 11:44 Zolpidem Tartrate (Ambien Tab) 5 mg HSZ PRN PO 11/26/17 11:30 12/26/17 11:29 Ondansetron HCl (Zofran Inj) 4 mg Q6H PRN IV 11/26/17 11:30 12/26/17 11:29 Albuterol (Ventolin Hfa Inhaler) 2 puffs Q6H PRN INH 11/26/17 11:30 12/26/17 11:29 Aspirin (Ecotrin Tab) 81 mg QAM PO 11/27/17 08:00 12/27/17 07:59 11/29/17 07:08 81 MG Dabigatran (Pradaxa Cap) 150 mg BID PO 11/26/17 20:00 12/26/17 19:59 11/29/17 07:08 150 MG Furosemide (Lasix Tab) 40 mg QAM PO 11/27/17 08:00 1/29/18 07:59 11/29/17 07:08 40 MG Lisinopril (Zestril Tab) 80 mg QAM PO 11/27/17 08:00 12/27/17 07:59 11/29/17 07:08 80 MG Magnesium Oxide (Mag-Ox Tab) 1,200 mg BID PO 11/26/17 20:00 12/26/17 19:59 11/29/17 07:08 1,200 MG Metoprolol Succinate (Toprol Xl Tab) 100 mg QAM PO 11/27/17 08:00 12/27/17 07:59 11/29/17 07:08 100 MG Lactobacillus Acidophilus (Floranex Tab) 1 tab QAM PO 11/27/17 08:00 12/27/17 07:59 11/29/17 07:08 1 TAB Tramadol HCl (Ultram Tab) 50 mg Q4H PRN PO 11/26/17 11:30 12/26/17 11:29 Ceftriaxone Sodium 1 gm/ Dextrose 50 ml @ 100 mls/hr Q24H IV 11/26/17 12:00 12/06/17 11:44 11/29/17 11:50 100 MLS/HR Hydralazine HCl (HydrALAZINE INJ) 5 mg Q8H PRN IV. 11/26/17 17:45 12/26/17 17:44 11/28/17 12:19 5 MG Daptomycin 450 mg/ Syringe 9 ml @ 4.5 mls/min DAILY@1900 IV 11/26/17 19:00 12/06/17 18:59 11/28/17 19:29 4.5 MLS/MIN Daptomycin (Consult) 1 ea UD PRN N/A 11/26/17 18:00 12/26/17 17:59 Simethicone (Mylicon Chew Tab) 120 mg QAM PO 11/27/17 08:00 12/27/17 07:59 11/29/17 07:07 120 MG Sodium Biphosphate/ Sodium Phosphate (Fleet Enema) 132 ml DAILY PRN [place] 11/28/17 08:00 12/28/17 07:59 11/28/17 10:34 132 ML Non-Formulary Medication (Non-Formulary Patient'S Own Med) 1 ea TIDM PO 11/28/17 18:30 12/28/17 18:29 11/29/17 11:51 1 EA Objective Vital Signs Date Time Temp Pulse Resp B/P (MAP) Pulse Ox O2 Delivery O2 Flow Rate FiO2 11/29/17 16:00 Room Air 11/29/17 15:18 36.6 50 20 175/88 (117) 98 Room Air 11/29/17 07:24 36.7 56 18 149/76 (100) 98 Room Air 11/29/17 00:00 Room Air 11/28/17 23:47 36.7 55 173/74 (107) 97 Room Air Physical Exam Notes: GENERAL: alert, no distress, non-toxic EYE EXAM: normal conjunctiva, PERRL and EOM's grossly intact NECK: supple, no nuchal rigidity, no adenopathy, non-tender LUNGS: Clear to auscultation. Normal chest wall mechanics HEART: no murmurs, S1 normal and S2 normal ABDOMEN: abdomen soft, non-tender, normo-active bowel sounds, no masses, no rebound or guarding. LOWER EXTREMITIES:RLE: warm to palpation, wound with serous drainage, evidence of venous stasis NEURO EXAM: Normal sensorium, cranial nerves II-XII grossly intact, normal speech Laboratory Results Results Past 24 Hours Test 11/29/17 06:13 Range/Units White Blood Count 3.94 4.8-10.8 K/uL Red Blood Count 3.90 4.7-6.1 M/uL Hemoglobin 10.5 14.0-18.0 g/dL Hematocrit 33.0 42-52 % Mean Corpuscular Volume 84.6 80-100 fL Mean Corpuscular Hemoglobin 26.9 25-34 pg Mean Corpuscular Hemoglobin Concent 31.8 32-36 g/dl RDW Standard Deviation 49.4 36.4-46.3 fL RDW Coefficient of Variation 15.9 11.5-14.5 % Platelet Count 80 130-400 K/uL Mean Platelet Volume 8.8 7.4-10.4 fL Sodium Level 128 136-145 mmol/L Potassium Level 4.2 3.5-5.1 mmol/L Chloride Level 94 98-107 mmol/L Carbon Dioxide Level 30 21-32 mmol/L Anion Gap 4.0 3-11 mmol/L Blood Urea Nitrogen 11 7-18 mg/dl Creatinine 0.71 0.60-1.40 mg/dl Est Creatinine Clear Calc Drug Dose 130.6 ml/min Estimated GFR () 114.1 Estimated GFR (Non- 98.5 BUN/Creatinine Ratio 15.2 10-20 Random Glucose 87 70-99 mg/dl Calcium Level 8.4 8.5-10.1 mg/dl Assessment and Plan 67 yo M w/ H/o Afib HTN chronic diastolic CHF, Chronic hyponatremia, BPH, Anemia Chronic LE Ulcers, colitis/w RLE cellulitis in the setting of chronic LE ulceration Right lower extremity cellulitis: likely secondary to infected LE ulcer chronic LE ulcers--ongoing -Vanc remains d/c'd due to allergi c rcxn. -Continue daptomycin and Rocephin 1 gm IV qd -Infectious disease consulted, awaiting recommendationsfor duration/type of therapy -Outpatient wound culture () +staph aureus -Wound care - Wound debrided by Dr. Cartagena prior to arrival on 11/26 A-fib, HTN, chronic diastolic CHF--stable. - Rate controlled, no acute exacerbation of CHF. BP improving -Continue ASA, Pradaxa 150 mg PO BID, Toprol XL 100 mg PO qd, lisinopril 80 mg PO qd, and Lasix 40 mg PO qd Hypokalemia: resolved -Potassium 3.3 --> 4.2 -Follow BMP's Hyponatremia--stable, at baseline Iron deficiency anemia--stable, - hgb at baseline -Iron studies; normal ferritin, dec'd iron, TIBC. Abdominal distention, possible colitis-- Unknown etiology of colitis, although outpt records state ulcerative colitis, - recent colonoscopy April 2017 just shows redundant and tortuous colon -Continue simethicone, digestive enzymes, fleet enema 3x/week DVT prophylaxis -Pradaxa Code Status -Level I, FULL RESUSCITATION STATUS Continued [facility] stay due to: other Discharge planning: uncertain Resident Tracking Resident Involvement: Resident Care Provided Care Provided: Adult Hospital Medicine History Resident Physician Supervision Note: I was present with Dr. Ku during the history and exam. I discussed the case with the resident and agree with the findings and plan as documented in the note. Any exceptions or clarifications are listed here. Pt reports improvement in lower extremity swelling, redness and drainage. Comfortable with present dressings. Reports no fever, sensory changes, joint pain. General Appearance: no apparent distress, obese Respiratory: chest non-tender, lungs clear, normal breath sounds, no respiratory distress Cardiovascular: normal peripheral pulses, regular rate, rhythm, no murmur, other (1+ edema of the B/L LE) Extremities: normal range of motion, other (minimally TTP area of ulceration of the right lateral calf with significant venous stasis dusking across b/l LE) Neurologic/Psychiatric: alert, normal mood/affect, oriented x 3 Assessment/Plan 67 y/o male h/o AF, HTN, chronic diastolic CHF, CMT, hyponatremia (chronic), BPH , anemia (Fe defn) presents from the wound care clinic with cellulitis. RLE cellulitis atop chronic LE ulcers - continue dapto and rocephin - ID Consulted, recommendations appreciated and will focus treatment for outpatient management considering severity and culture results - Wound care consulted -debrided by Dr. Cartagena prior to arrival on 11/26 AF, HTN, chronic diastolic CHF - Rate controlled, no acute exacerbation of CHF. BP improving -Continue ASA, Pradaxa, Toprol XL, lisinopril, and Lasix Hypokalemia - resolved Hyponatremia - stable, at baseline Iron deficiency anemia - stable, hgb at baseline Abdominal distention, colitis - chronic, baseline per pt. Unknown etiology of colitis, although outpt records state ulcerative colitis, recent colonoscopy April 2017 just shows redundant and tortuous colon - Continue simethicone, digestive enzymes, fleet enema 3x/week Code Status -Level I, FULL RESUSCITATION STATUS
[2017-11-29] MEDS ORDERED: DIGESTIVE ENZYME PO SCH (08:00)
[2017-11-29] MEDS: CEFTRIAXONE SOD INJ 1 GM in DEXTROSE 5% ADD-VANTAGE 50ML 50 ML IV SCH (11:50)
--- NOTE | 2017-11-29 12:58 | NUR ---
Wound Care Note Upon arrival to room patient noted to have coban lite wrap on left leg, this wrap was placed incorrectly. Patient's states "I did that wrap because noone was doing anything" Reviewed with patient importance of trained staff placing wrap on patient. Dr. Cartagena made aware of above. Wound changed to bilateral lower legs, Instructed patient to make follow up appointment early in week at wound clinic instead of Wednesday. Patient verbalizes understanding
[2017-11-29 15:18] VITALS: BP 175/88; PULSE 50; TEMP 36.6; O2SAT 98
[2017-11-29] MEDS: DAPTOmycin IV 450 MG in SYRINGE 0 ML IV SCH (20:36)
[2017-11-29 21:16] VITALS: BP 164/105; PULSE 66
[2017-11-29 23:27] VITALS: BP 177/106; PULSE 51; TEMP 36.6; O2SAT 95
--- NOTE | 2017-11-30 | NUR ---
ID: Pt sleeping in bed, upon assessment. Remains AAO x 4, VSS on RA. OOB with supervision. Contact precaution in placed. Denies pain. Dressings c/d/i. Verbalized no needs at this time. See EMR for full assessment. Call mclain within reach. Discharge plan is to return home when medically stable. Will monitor.
[2017-11-30 04:19] VITALS: BP 157/87; PULSE 57
[2017-11-30 07:18] VITALS: BP 176/89; PULSE 54; TEMP 36.8; O2SAT 96
[2017-11-30 07:18] LABS: HEMOGLOBIN 11.2 g/dL (14.0-18.0); MEAN CELL VOLUME 85.2 fL (80-100); MEAN CORPUSCULAR HEMOGLOBIN 28.1 pg (25-34); MEAN CORPUSCULAR HGB CONC 32.9 g/dl (32-36); RED CELL DISTRIBUTION WIDTH CV 15.7 % (11.5-14.5); RED CELL DISTRIBUTION WIDTH SD 49.1 fL (36.4-46.3); WHITE BLOOD COUNT 4.71 K/uL (4.8-10.8)
[2017-11-30 07:22] LABS: PLATELET COUNT 98 K/uL (130-400)
[2017-11-30 07:44] LABS: CALCIUM 8.7 mg/dl (8.5-10.1); CREATININE 0.78 mg/dl (0.60-1.40); POTASSIUM 4.7 mmol/L (3.5-5.1)
[2017-11-30] MEDS: DIGESTIVE ENZYME PO SCH ×2 (08:00→11:02)
--- NOTE | 2017-11-30 08:00 | Family Medicine Progress Note ---
Progress Note Date of Service Nov 30, 2017. Subjective Pt evaluation today including: conversation w/ patient, physical exam, chart review, lab review, review of studies, review of inpatient medication list Pain: denies PO Intake: dequate Voiding: no voiding problems No acute events overnight. Patient reports resolution of pain in his RLE. He feels overall he is getting better. He denies fevers chills, n/v, abdominal pain, diarrhea. He does report abdominal bloating which is chronic for him Constitutional: No fever, No chills, No weakness ENT: + nasal symptoms Respiratory: No cough, No shortness of breath Cardiovascular: No chest pain Abdomen: No pain, No nausea, No vomiting, No diarrhea Male : No dysuria, No urinary frequency Skin: No rash, No itch Medications Current Inpatient Medications Medications (Trade) Dose Ordered Sig/Keren Route Start Time Stop Time Status Last Admin Dose Admin Acetaminophen (Tylenol Tab) 650 mg Q4H PRN PO 11/26/17 11:30 12/26/17 11:29 11/28/17 22:09 650 MG Al Hydrox/Mg Hydrox/Simethicone (Maalox Max Susp) 15 ml Q4H PRN PO 11/26/17 11:30 12/26/17 11:29 Magnesium Hydroxide (Milk Of Magnesia Susp) 30 ml Q6H PRN PO 11/26/17 11:30 12/26/17 11:29 Polyethylene (Miralax Powder Packet) 17 gm DAILY PRN PO 11/26/17 11:45 12/26/17 11:44 Zolpidem Tartrate (Ambien Tab) 5 mg HSZ PRN PO 11/26/17 11:30 12/26/17 11:29 Ondansetron HCl (Zofran Inj) 4 mg Q6H PRN IV 11/26/17 11:30 12/26/17 11:29 Albuterol (Ventolin Hfa Inhaler) 2 puffs Q6H PRN INH 11/26/17 11:30 12/26/17 11:29 Aspirin (Ecotrin Tab) 81 mg QAM PO 11/27/17 08:00 12/27/17 07:59 11/29/17 07:08 81 MG Dabigatran (Pradaxa Cap) 150 mg BID PO 11/26/17 20:00 12/26/17 19:59 11/29/17 20:37 150 MG Furosemide (Lasix Tab) 40 mg QAM PO 11/27/17 08:00 12/27/17 07:59 11/29/17 07:08 40 MG Lisinopril (Zestril Tab) 80 mg QAM PO 11/27/17 08:00 12/27/17 07:59 11/29/17 07:08 80 MG Magnesium Oxide (Mag-Ox Tab) 1,200 mg BID PO 11/26/17 20:00 12/26/17 19:59 11/29/17 20:37 1,200 MG Metoprolol Succinate (Toprol Xl Tab) 100 mg QAM PO 11/27/17 08:00 12/27/17 07:59 11/29/17 07:08 100 MG Lactobacillus Acidophilus (Floranex Tab) 1 tab QAM PO 11/27/17 08:00 12/27/17 07:59 11/29/17 07:08 1 TAB Tramadol HCl (Ultram Tab) 50 mg Q4H PRN PO 11/26/17 11:30 12/26/17 11:29 Ceftriaxone Sodium 1 gm/ Dextrose 50 ml @ 100 mls/hr Q24H IV 11/26/17 12:00 12/06/17 11:44 11/29/17 11:50 100 MLS/HR Hydralazine HCl (HydrALAZINE INJ) 5 mg Q8H PRN IV. 11/26/17 17:45 12/26/17 17:44 11/28/17 12:19 5 MG Daptomycin 450 mg/ Syringe 9 ml @ 4.5 mls/min DAILY@1900 IV 11/26/17 19:00 12/06/17 18:59 11/29/17 20:36 4.5 MLS/MIN Daptomycin (Consult) 1 ea UD PRN N/A 11/26/17 18:00 12/26/17 17:59 Simethicone (Mylicon Chew Tab) 120 mg QAM PO 11/27/17 08:00 12/27/17 07:59 11/29/17 07:07 120 MG Sodium Biphosphate/ Sodium Phosphate (Fleet Enema) 132 ml DAILY PRN [place] 11/28/17 08:00 12/28/17 07:59 11/28/17 10:34 132 ML Non-Formulary Medication (Non-Formulary Patient'S Own Med) 1 ea TIDM PO 11/28/17 18:30 12/28/17 18:29 11/29/17 17:06 1 EA Objective Vital Signs Date Time Temp Pulse Resp B/P (MAP) Pulse Ox O2 Delivery O2 Flow Rate FiO2 11/30/17 07:18 36.8 54 20 176/89 (118) 96 Room Air 11/30/17 04:19 57 157/87 (110) 11/30/17 00:33 Room Air 11/29/17 23:27 36.6 51 20 177/106 (129) 95 Room Air 11/29/17 21:16 66 164/105 (124) 11/29/17 16:00 Room Air 11/29/17 15:18 36.6 50 20 175/88 (117) 98 Room Air Physical Exam Notes: GENERAL: alert, no distress, non-toxic EYE EXAM: normal conjunctiva, PERRL and EOM's grossly intact NECK: supple, no nuchal rigidity, no adenopathy, non-tender LUNGS: Clear to auscultation. Normal chest wall mechanics HEART: no murmurs, S1 normal and S2 normal ABDOMEN: abdomen soft, non-tender, normo-active bowel sounds, no masses, no rebound or guarding. LOWER EXTREMITIES:Dong LE: clean, bandage in place, NEURO EXAM: Normal sensorium, cranial nerves II-XII grossly intact, normal speech Laboratory Results Results Past 24 Hours Test 11/30/17 06:37 Range/Units White Blood Count 4.71 4.8-10.8 K/uL Red Blood Count 3.99 4.7-6.1 M/uL Hemoglobin 11.2 14.0-18.0 g/dL Hematocrit 34.0 42-52 % Mean Corpuscular Volume 85.2 80-100 fL Mean Corpuscular Hemoglobin 28.1 25-34 pg Mean Corpuscular Hemoglobin Concent 32.9 32-36 g/dl RDW Standard Deviation 49.1 36.4-46.3 fL RDW Coefficient of Variation 15.7 11.5-14.5 % Platelet Count 98 130-400 K/uL Mean Platelet Volume 9.0 7.4-10.4 fL Sodium Level 130 136-145 mmol/L Potassium Level 4.7 3.5-5.1 mmol/L Chloride Level 95 98-107 mmol/L Carbon Dioxide Level 31 21-32 mmol/L Anion Gap 4.0 3-11 mmol/L Blood Urea Nitrogen 13 7-18 mg/dl Creatinine 0.78 0.60-1.40 mg/dl Est Creatinine Clear Calc Drug Dose 118.9 ml/min Estimated GFR () 109.8 Estimated GFR (Non- 94.7 BUN/Creatinine Ratio 16.6 10-20 Random Glucose 85 70-99 mg/dl Calcium Level 8.7 8.5-10.1 mg/dl Assessment and Plan 67 yo M w/ H/o Afib HTN chronic diastolic CHF, Chronic hyponatremia, BPH, Anemia Chronic LE Ulcers, colitis/w RLE cellulitis in the setting of chronic LE ulceration Right lower extremity cellulitis: likely secondary to infected LE ulcer ( Chronic LE ulcers) -Vanc remains d/c'd due to allergic rxn. -Continue daptomycin and Rocephin 1 gm IV qd -Infectious disease consulted, awaiting recommendations for duration/type of therapy from Dr. Doyle -Outpatient wound culture () +staph aureus -Wound debrided by Dr. Cartagena prior to arrival on 11/26 -Wound care A-fib, HTN, chronic diastolic CHF--stable. - Rate controlled, no acute exacerbation of CHF. BP improving -Continue ASA, Pradaxa 150 mg PO BID, Toprol XL 100 mg PO qd, lisinopril 80 mg PO qd, and Lasix 40 mg PO qd Hypokalemia: resolved -Potassium 3.3 --> 4.2 -->4.7 -Follow BMP's Hyponatremia--stable, at baseline Iron deficiency anemia--stable, - hgb at baseline - Iron studies; normal ferritin, dec'd iron, TIBC. Abdominal distention, possible colitis-- Unknown etiology of colitis, although outpt records state ulcerative colitis, - recent colonoscopy April 2017 just shows redundant and tortuous colon -Continue simethicone, digestive enzymes, fleet enema 3x/week DVT prophylaxis -Pradaxa Code Status -Level I, FULL RESUSCITATION STATUS Continued [facility] stay due to: multiple IV medications needed Discharge planning: home Resident Tracking Resident Involvement: Resident Care Provided Care Provided: Adult Hospital Medicine History Resident Physician Supervision Note: I was present with Dr. Ku during the history and exam. I discussed the case with the resident and agree with the findings and plan as documented in the note. Any exceptions or clarifications are listed here. Pt reports continued decrease in swelling, drainage and redness of the b/l LE with improved tolerance of compression dressings. Reports no fever, chest pain, SOB, lightheadedness. General Appearance: no apparent distress, obese Respiratory: chest non-tender, lungs clear, normal breath sounds, no respiratory distress Cardiovascular: normal peripheral pulses, regular rate, rhythm, no murmur, other (stable 1+ pitting edema of the mid flood) Extremities: other (gradually improving erythema superimposed on chronic venous stasis changes of the b/l LE with apaprent serosanguinous drainage from the RLE wound) Neurologic/Psychiatric: no motor/sensory deficits, alert, normal mood/affect, oriented x 3 Assessment/Plan 67 y/o male h/o AF, HTN, chronic diastolic CHF, CMT, hyponatremia (chronic), BPH , anemia (Fe defn) presents from the wound care clinic with cellulitis. RLE cellulitis atop chronic LE ulcers - transition to doxycycline per ID recommendations, follow up with wound care as outpatient. -debrided by Dr. Cartagena prior to arrival on 11/26 AF, HTN, chronic diastolic CHF - Rate controlled, no acute exacerbation of CHF. BP improving - Continue ASA, Pradaxa, Toprol XL, lisinopril, and Lasix Hypokalemia - resolved Hyponatremia - stable, at baseline Iron deficiency anemia - stable, hgb at baseline Abdominal distention, colitis - chronic, baseline per pt. Unknown etiology of colitis, although outpt records state ulcerative colitis, recent colonoscopy April 2017 just shows redundant and tortuous colon - Continue simethicone, digestive enzymes, fleet enema 3x/week Code Status -Level I, FULL RESUSCITATION STATUS
[2017-11-30] MEDS: ASPIRIN 81 MG ECTAB PO SCH (08:46)
[2017-11-30] MEDS: MAGNESIUM OXIDE 400 MG TAB PO SCH (08:46)
[2017-11-30] MEDS: LACTOBACILLUS ACIDOPHILUS (FLORANEX) TAB PO SCH (08:46)
[2017-11-30] MEDS: FUROSEMIDE 40 MG TAB PO SCH (08:46)
[2017-11-30] MEDS: SIMETHICONE 80 MG CHEW PO SCH (08:47)
[2017-11-30] MEDS: LISINOPRIL 40 MG TAB PO SCH (08:47)
[2017-11-30] MEDS: METOPROLOL SUCC 50MG EXT REL TAB PO SCH (08:47)
[2017-11-30] MEDS: DABIGATRAN ELEXILATE 75 MG CAP PO SCH (08:47)
--- NOTE | 2017-11-30 09:28 | NUR ---
A/ID: Assessment completed, see EMR. Alert and oriented X4. VSS. Lungs clear on room air. Bowel sounds WNL. Voiding. + pedal pulses with non-pitting edema noted to BLE. self positioning./ Tolerating diet. Call mclain within reach./ Verbalizes no needs at this time. Plans for home upon discharge at this time.
[2017-11-30 09:49] VITALS: O2SAT 96
--- NOTE | 2017-11-30 10:51 | NUR ---
JULIA [facility]: I arrange a follow up appt w/ Dr. Griffiths on WednesdayDecember 06 at 2:30 pm and add this info to the DC instructions. Addendum: 11/30/17 at 1513 by Danette Isaac SERV Pt has an appt in place at the [facility] tomorrow, Dec 01, at 9:40 am. This info was added to the DC instructions.
[2017-11-30] MEDS: CEFTRIAXONE SOD INJ 1 GM in DEXTROSE 5% ADD-VANTAGE 50ML 50 ML IV SCH (11:02)
--- NOTE | 2017-11-30 11:30 | NUR ---
Case Management- Met with pt and to review role of mental health case manager and discuss discharge plans. Pt lives with his and is independent at baseline. Pt follows at the [facility] wound clinic. Currently we are awaiting final determination related to abx, uncertain if pt will need IV vs po. Discussed options for IV infusions, pts preference would be to go to an out pt unit in [place] for administration. Pt and aware if IV is not 1x day they will have to learn at home. Pt has new [facility] insurance as of 11/29/17, limits choices for IV supply companies. [facility] to [facility] coverage in case needed. Addendum: 11/30/17 at 1518 by Ifrah Farr SERV Pt will discharge on PO abx, met with pt and she manages his dressing changes and they follow up weekly with the wound clinic. Declining any discharge services at this time.
--- NOTE | 2017-11-30 14:19 | Progress Note ---
Subjective Date of Service: Nov 30, 2017. Subjective Pt evaluation today including: conversation w/ patient, conversation w/ family , physical exam, chart review, lab review pt seen in followup, tolerating abx. leg improving, no pain, no f/c. asking to go home. has followup at wound center in am. would prefer po abx. culture with mssa. all remaining ros reviewed and are negative. Objective Vital Signs Date Time Temp Pulse Resp B/P (MAP) Pulse Ox O2 Delivery O2 Flow Rate FiO2 11/30/17 09:49 96 Room Air 11/30/17 07:18 36.8 54 20 176/89 (118) 96 Room Air 11/30/17 04:19 57 157/87 (110) 11/30/17 00:33 Room Air 11/29/17 23:27 36.6 51 20 177/106 (129) 95 Room Air 11/29/17 21:16 66 164/105 (124) 11/29/17 16:00 Room Air 11/29/17 15:18 36.6 50 20 175/88 (117) 98 Room Air Physical Exam General Appearance: WD/WN, no apparent distress Eyes: normal inspection, EOMI Neck: supple Respiratory/Chest: lungs clear, normal breath sounds, no respiratory distress Cardiovascular: regular rate, rhythm, no edema Abdomen: soft Extremities: non-tender, no pedal edema Neurologic/Psychiatric: alert, oriented x 3 Skin: normal color, no rash Comments: b/l le dressing c/d/i Laboratory Results Item Value Date Time Gram Stain - Final Complete 11/26/17 0000 Ulcer Leg Lower Left Last 24 Hours Test 11/30/17 06:37 White Blood Count 4.71 K/uL Red Blood Count 3.99 M/uL Hemoglobin 11.2 g/dL Hematocrit 34.0 % Mean Corpuscular Volume 85.2 fL Mean Corpuscular Hemoglobin 28.1 pg Mean Corpuscular Hemoglobin Concent 32.9 g/dl RDW Standard Deviation 49.1 fL RDW Coefficient of Variation 15.7 % Platelet Count 98 K/uL Mean Platelet Volume 9.0 fL Sodium Level 130 mmol/L Potassium Level 4.7 mmol/L Chloride Level 95 mmol/L Carbon Dioxide Level 31 mmol/L Anion Gap 4.0 mmol/L Blood Urea Nitrogen 13 mg/dl Creatinine 0.78 mg/dl Est Creatinine Clear Calc Drug Dose 118.9 ml/min Estimated GFR () 109.8 Estimated GFR (Non- 94.7 BUN/Creatinine Ratio 16.6 Random Glucose 85 mg/dl Calcium Level 8.7 mg/dl Assessment and Plan (1) Cellulitis Assessment & Plan: change to izabela zhao 21 days. will plan to follow in wound center post d/c. ok for d/c from ID standpoint. Continued [facility] stay due to: multiple IV medications needed Discharge planning: home
[2017-11-30] MEDS ORDERED: DXY100 PO (14:39)
--- NOTE | 2017-11-30 14:51 | Discharge Instructions ---
Discharge Instructions Date of Service Nov 30, 2017. Admission Reason for Admission: Bilateral Lower Extremity Cellulitis Discharge Discharge Diagnosis / Problem: Lower extremity cellulitis Discharge Goals Goal(s): Improve disease control Activity Recommendations Activity Limitations: resume your previous activity . Instructions / Follow-Up Instructions / Follow-Up You were diagnosed with lower extremity cellulitis and treated with IV antibiotics as an inpatient. You should follow up with wound care clinic tomorrow as previously arranged. You should continue on oral doxycyline antibiotic as an outpatient as recommended by infectious disease and continuation of this will be re-assessed in follow up appointments. Your blood pressure was also elevated as an inpatient and you should follow up with you primary care physician regarding this. You are on a high dose of lisinopril and metoprolol and recently stopped taking amlodipine therefore no changes were made as an inpatient regarding this. An appointment has been made with Dr. Griffiths on WednesdayDecember 06 at 2:30 pm. Current Hospital Diet Patient's current hospital diet: AHA Diet (Heart Healthy) Discharge Diet Recommended Diet: AHA Diet (Heart Healthy) Pending Studies Studies pending at discharge: no Laboratory Results Lipid Panel Test 08/30/17 09:00 Range/Units Triglycerides Level 26 0-150 mg/dl Cholesterol Level 104 0-200 mg/dl HDL Cholesterol 79 mg/dl Cholesterol/HDL Ratio 1.3 LDL Cholesterol, Calculated 20 mg/dl Medical Emergencies . Who to Call and When: Medical Emergencies: If at any time you feel your situation is an emergency, please call 911 immediately. . Non-Emergent Contact Non-Emergency issues call your: Primary Care Provider . . "Provider Documentation" section prepared by Parrish Swanson. . VTE Core Measure Inpt VTE Proph given/why not?: Other Anticoagulation (Pradaxa)
[2017-11-30 15:14] VITALS: BP 176/89; PULSE 54; TEMP 36.8; O2SAT 96
--- NOTE | 2017-11-30 16:00 | NUR ---
A: The patient is alert and oriented x4, denies pain, and is verbalizing readiness for discharge. The patient is being discharged to home with self-care. Physician requested that nursing change the patient's dressings before discharge. This nurse changed the dressings per WOCN instructions. The patient's spouse was at the bedside to watch and ask questions. Cleansed with NSS and redressed, small amounts of serosanguinous drainage noted. The patient has a follow-up appointment tomorrow with the wound center, and verbalizes understanding of time and place. Discharge instructions including medications, follow-up appointments and home care were reviewed with the patient and his spouse. Belongings were collected and are being sent home with the patient. Right forearm peripheral saline lock was discontinued, catheter tip intact. Volunteer called to provide wheelchair escort to main entrance.
[2017-11-30] MEDS ORDERED: DOXYCYCLINE HYCLATE 100 MG CAP PO SCH (20:00)
--- NOTE | 2017-12-01 00:33 | Discharge Summary ---
Discharge Summary Date of Service Dec 01, 2017. Discharge Summary Admission Date: Nov 26, 2017 at 10:56 Discharge Date: Nov 30, 2017 Discharge Disposition: Home Principal Diagnosis: Bilateral Lower Extremity Cellulitis Consultations: Infectious Disease Medication Reconciliation New Medications: Doxycycline Hyclate (Doxycycline Hyclate) 100 Mg Cap 100 MG PO BID for 21 Days, #42 CAP Continued Medications: Albuterol (Proair Hfa) Aers 1-2 PUFFS INH BID PRN for Shortness of Breath Aspirin (Aspirin Chewable) 81 Mg Chew 81 MG PO QAM Dabigatran Etexilate Mesylate (Pradaxa) 150 Mg Cap 150 MG PO BID, CAP Digestive Enzymes (Digestive Enzyme) 1 Cap Cap 1 CAP PO QAM Furosemide (Lasix) 40 Mg Tab 1 TAB PO QAM, TAB Lisinopril (Zestril) 40 Mg Tab 80 MG PO QAM, TAB Magnesium Oxide (Mag-Ox) 400 Mg Tab 3 TAB PO BID, TAB Metoprolol Succinate (Metoprolol Succinate ER) 100 Mg Tabcr 1 TAB PO QAM Misc Natural Products (Osteo Bi-Flex Advanced Do) 1 Tab Tab 1 TAB PO QAM Multivitamin (Multivitamin) Tab 1 TAB PO QAM, TAB Probiotic Product (Probiotic) 1 Cap Cap 1 CAP PO QAM Simethicone (Cvs Gas Relief) 125 Mg Cap 1 TAB PO QAM Discharge Exam refer to today's progress note Hospital Course 67 y/o M Hx diastolic CHF, AF, HTN, Bbystcp-Bykgh-Drrxl, chronic LE ulcers. Presents from wound care clinic due to BL lower ext cellulitis. Recent wound cultures did not show any growth, however, cultures from 10/29 revealed MSSA. He denies fevers or rigors. Wound debrided by Dr. Cartagena 11/26. wound culture from 11/26 positive for staph aureus Hospital course: Right lower extremity cellulitis, chronic LE ulcers--ongoing -Vanc later d/c'd due to allergic reaction -placed daptomycin and Rocephin 1 gm IV qd -Infectious disease consulted -Wound care consulted -During hospital stay remained without fever, leukocytosis -on day of discharge, changed to doxycycline for 21 days withfollow up in wound center post d/c. A-fib, HTN, chronic diastolic CHF stable. Rate controlled, no acute exacerbation of CHF. -Continued ASA, Pradaxa 150 mg PO BID, Toprol XL 100 mg PO qd, lisinopril 80 mg PO qd, and Lasix 40 mg PO qd Hypokalemia -supplemented and resolved Hyponatremia -stable, at baseline Iron deficiency anemia -stable, hgb at baseline -Iron studies showed normal Ferritin, with low iron. TIBC Abdominal distention possible colitis-- Unknown etiology of colitis, although outpt records state ulcerative colitis - recent colonoscopy April 2017 just shows redundant and tortuous colon -Continued with simethicone, digestive enzymes, fleet enema 3x/week DVT prophylaxis -Pradaxa Total Time Spent: Less than 30 minutes This includes examination of the patient, discharge planning, medication reconciliation, and communication with other providers. Discharge Instructions Please refer to the electronic Patient Visit Report (Discharge Instructions) for additional information. History Resident Physician Supervision Note: I was present with Dr. Ku during the history and exam. I discussed the case with the resident and agree with the findings and plan as documented in the note. Any exceptions or clarifications are listed here. For full attending history and physical, see note from day of discharge. Assessment/Plan 67 y/o male h/o AF, HTN, chronic diastolic CHF, CMT, hyponatremia (chronic), BPH , anemia (Fe defn) presents from the wound care clinic with cellulitis. RLE cellulitis atop chronic LE ulcers - complete course of doxycycline per ID recommendations, follow up with wound care as outpatient. -debrided by Dr. Cartagena prior to arrival on 11/26 AF, HTN, chronic diastolic CHF - Rate controlled, no acute exacerbation of CHF. Continue ASA, Pradaxa, Toprol XL, lisinopril, and Lasix Hyponatremia - stable, at baseline Iron deficiency anemia - stable, hgb at baseline Abdominal distention, colitis - chronic, baseline per pt. Unknown etiology of colitis, although outpt records state ulcerative colitis, recent colonoscopy April 2017 just shows redundant and tortuous colon - Continue simethicone, digestive enzymes, fleet enema 3x/week for relief of compression
[2017-12-06] MEDS ORDERED: SPIR25TA PO (08:58)
[2017-12-20] MEDS ORDERED: DXY100 PO (15:04)
[2018-01-19] MEDS ORDERED: DXY100 PO (09:12)
[2018-04-01] MEDS ORDERED: SULF800T23 PO (10:41)
[2018-04-22] MEDS ORDERED: DOXY100C76 PO (08:56)
[2018-05-02] MEDS ORDERED: CEPH-571 PO (13:46)
[2018-06-03] MEDS ORDERED: NTRGSL/4 SL (06:51)
[2018-06-03] MEDS ORDERED: LISI40TA PO (06:51)
[2018-06-03] MEDS ORDERED: SILD100T PO (06:56)
[2018-06-03] MEDS ORDERED: ZOST50IN (06:56)
[2018-06-03] MEDS ORDERED: TRMO115 TOP (06:56)
[2018-06-03] MEDS ORDERED: MOME6000 (06:56)
[2018-06-03] MEDS ORDERED: CLBPO15 TOP (06:56)
[2018-06-03] MEDS ORDERED: MISO200T PO (07:14)
== END 2017-11-30 16:00 | disposition home or self-care (01) | DRG 603 ==
LOC: C.MS4W 10:56
PROVIDERS: ADMIT Internal Medicine; ATTEND Family Medicine
PROC: 0HDKXZZ Extraction of Right Lower Leg Skin, External Approach (ICD-10-PCS; principal; 2017-11-26)
PROC: 0HDLXZZ Extraction of Left Lower Leg Skin, External Approach (ICD-10-PCS; principal; 2017-11-26)
DX: L03.115 Cellulitis of right lower limb (principal); I50.32 Chronic diastolic (congestive) heart failure; E87.1 Hypo-osmolality and hyponatremia; L03.116 Cellulitis of left lower limb; I11.0 Hypertensive heart disease with heart failure; I48.2 Chronic atrial fibrillation; E87.6 Hypokalemia; Z79.82 Long term (current) use of aspirin; I87.2 Venous insufficiency (chronic) (peripheral); L97.929 Non-pressure chronic ulcer of unspecified part of left lower leg with unspecified severity; S81.802A Unspecified open wound, left lower leg, initial encounter; X58.XXXA Exposure to other specified factors, initial encounter; L84 Corns and callosities; G60.0 Hereditary motor and sensory neuropathy; K63.89 Other specified diseases of intestine; Z79.899 Other long term (current) drug therapy

== ENCOUNTER → 2017-12-08 | Outpatient (CLI) | payer OTHER ==
[~2017-12-08] MED LIST changes: +DXY100 PO; -MISCTAB78 PO; +SPIR25TA PO
[2017-12-08 12:34] LABS: BASO % 0.5 %; BASO ABS # 0.03 K/uL (0-0.2); EOS % 5.1 %; EOS ABS # 0.28 K/uL (0-0.5); HEMATOCRIT 35.4 % (42-52); HEMOGLOBIN 11.7 g/dL (14.0-18.0); IG# 0.01 K/uL (0.00-0.02); LYMPH % 27.3 %; LYMPH ABS # 1.51 K/uL (1.2-3.4); MEAN CELL VOLUME 85.1 fL (80-100); MEAN CORPUSCULAR HEMOGLOBIN 28.1 pg (25-34); MEAN CORPUSCULAR HGB CONC 33.1 g/dl (32-36); MEAN PLATELET VOLUME 9.2 fL (7.4-10.4); MONO % 8.9 %; MONO ABS # 0.49 K/uL (0.11-0.59); NEUT ABS # 3.21 K/uL (1.4-6.5); PLATELET COUNT 217 K/uL (130-400); RED CELL DISTRIBUTION WIDTH CV 15.7 % (11.5-14.5); WHITE BLOOD COUNT 5.53 K/uL (4.8-10.8)
[2017-12-08 12:55] LABS: INR 1.3 (0.9-1.1); PTT PATIENT 44.3 SECONDS (21.0-31.0)
[2017-12-08 13:02] LABS: BLOOD UREA NITROGEN 18 mg/dl (7-18); CALCIUM 8.9 mg/dl (8.5-10.1); CARBON DIOXIDE 29 mmol/L (21-32); CREATININE 0.78 mg/dl (0.60-1.40); GLUCOSE 94 mg/dl (70-99); POTASSIUM 4.1 mmol/L (3.5-5.1); SODIUM 128 mmol/L (136-145); TRANSFERRIN 259 mg/dl (200-360)
== END | disposition home or self-care (01) ==
LOC: C.LABMFLN 10:49
PROVIDERS: ATTEND Internal Medicine Interventional Cardiology
DX: Z01.818 Encounter for other preprocedural examination (principal); D50.9 Iron deficiency anemia, unspecified; D69.6 Thrombocytopenia, unspecified; E87.1 Hypo-osmolality and hyponatremia; I10 Essential (primary) hypertension

== ENCOUNTER → 2017-12-23 | Day surgery (SDC) | payer OTHER ==
[~2017-12-23] VITALS: Ht 182.9 cm; Wt 104.0 kg
[~2017-12-23] MED LIST changes: +FENTANYL CITRATE INJ 50 MCG/1 ML 2 ML VIAL ONE; +LIDOCAINE HCL 1% 20 ML VIAL INJ ONE; +LIDOCAINE HCL 1% 20 ML VIAL ONE; +LIDOCAINE/EPINEPHRINE 1% INJ 50 ML VIAL ONE; +MIDAZOLAM HCL 1 MG/ML 2ML VIAL ONE; +ORM MISCELLANEOUS MED XX ONE; +SODIUM BICARB 8.4% INJ 50 MEQ/50 ML SYR IV ONE
[2017-12-23 06:46] VITALS: BP 145/76; PULSE 58; TEMP 36.4; O2SAT 98; Ht 182.9 cm; Wt 104.0 kg
--- NOTE | 2017-12-23 08:12 | Pre Sedation Assessment ---
Pre Sedation Assessment General Date of Sedation: Dec 23, 2017. Vital Signs Past 12 Hours Date Time Temp Pulse Resp B/P (MAP) Pulse Ox O2 Delivery O2 Flow Rate FiO2 12/23/17 06:46 36.4 58 18 145/76 (99) 98 Room Air Review Cardiovascular: regular rate, rhythm, no edema Lungs: chest non-tender, lungs clear Pre-Sedation Airway Assessment Smoking Status: Never Smoker Hx of Sleep Apnea: No Short Thick Neck: Yes Thyro-mental Distance: > 3 Finger Breadths Oral Cavity: WNL Mallampati Classification: Class I ASA Classification: Class II NPO Status Date of Last Intake of Fluids: Dec 23, 2017 Time of Last Intake of Fluids: 429 Date of Last Intake of Solids: Dec 23, 2017 Time of Last Intake of Solids: 2029 Procedure Planning Contraindications for Sedation: None Current Medications Reviewed: Yes Notes The planned sedation has been discussed with the patient. Informed Consent was obtained. I have identified the patient, determined the appropriateness of sedation and have assessed the patient immediately prior to the procedure. All medicine(s) and interventions are by my order.
--- NOTE | 2017-12-23 08:34 | History and Physical ---
History & Physical Date Dec 23, 2017. History of Present Illness Mr. Ulloa is a 67-year-old gentleman with a history significant for diastolic CHF, hyponatremia, hypertension, permanent atrial fibrillation, persistent colonic distention and prior sigmoid volvulus, Pwlmsyd-Rkfud-Zmtaw muscular dystrophy and recurrent lower extremity ulceration in the setting of chronic venous insufficiency. Patient endorses longstanding lower extremity edema and recurrent flood ulcerations. Left LE ulcerations treated with standard wound care at wound clinic. No history of prior DVTs, smoking or prior LE surgeries. He has previously managed his LE edema with compression stockings and leg pumps. Recent venous reflux study was positive for left GSV reflux and dilation. Past Medical/Surgical History Chronic diastolic heart failure, hyponatremia, hypertension, permanent atrial fibrillation, colitis/persistent colonic distention, prior sigmoid volvulus status post resection, Znhpdsq-Hswtj-Gfylf disease wall, GERD, pelvic mass Additional History Hepatic Disease: No Endocrine Disorder: Yes Kidney Disease: Yes Hypertension: Yes Heart Disease: Yes Bleeding Tendencies: No Infectious Diseases: No Allergies Coded Allergies: Vancomycin (Verified Allergy, Severe, HIVES, 12/23/17) Ampicillin (Verified Allergy, Unknown, rash, 12/23/17) Sulbactam (Verified Allergy, Unknown, rash, 12/23/17) Home Medications Scheduled Aspirin (Aspirin Chewable), 81 MG PO QAM Dabigatran Etexilate Mesylate (Pradaxa), 150 MG PO BID Digestive Enzymes (Digestive Enzyme), 1 CAP PO QAM Doxycycline Hyclate (Doxycycline Hyclate), 100 MG PO BID Furosemide (Lasix), 1 TAB PO QAM Lisinopril (Zestril), 80 MG PO QAM Magnesium Oxide (Mag-Ox), 3 TAB PO BID Metoprolol Succinate (Metoprolol Succinate ER), 1 TAB PO QAM Multivitamin (Multivitamin), 1 TAB PO QAM Probiotic Product (Probiotic), 1 CAP PO QAM Simethicone (Cvs Gas Relief), 1 TAB PO QAM Spironolactone (Aldactone), 25 MG PO BID Scheduled PRN Albuterol (Proair Hfa), 1-2 PUFFS INH BID PRN for Shortness of Breath Physical Examination Skin: warm/dry Neck: supple Respiratory/Chest: lungs clear Cardiovascular: regular rate, rhythm Abdomen / GI: normal bowel sounds Back: normal inspection Extremities: + pertinent finding (lower extremity swelling, edema, legs wrapped bilaterally) Neurologic/Psych: alert, oriented x 3 Diagnosis Chronic venous insufficiency ASA Classification: ASA Class III Plan of Treatment Left GSV RFA
--- NOTE | 2017-12-23 09:44 | Post Sedation Assessment ---
Post Sedation Assessment General Date of Sedation Dec 23, 2017. Vital Signs: Vital Signs Past 12 Hours Date Time Temp Pulse Resp B/P (MAP) Pulse Ox O2 Delivery O2 Flow Rate FiO2 12/23/17 06:46 36.4 58 18 145/76 (99) 98 Room Air Post Procedure Recovery Score Activity: (2) Moves 4 extremities * Respiration: (2) Deep breath/cough Circulation: (2) +/-20% PreAnes Value Consciousness: (2) Fully Awake Oxygen Saturation: (2) > 92% On Room Air Discharge Sedation Level of Care: Phase I Post Sedation Plan On clinical assessment, the patient appears to have tolerated the sedation without complications. Patient is recovering as anticipated. Patient will continue to be monitored by nursing and may be discharged when sedation discharge criteria are met per below protocol. Upon Completions of procedure and additional 15 minutes continue every 5 minute vital signs and the P.A.R. score; then discharge to a Phase I or Fast Track to Phase II per the following guidelines: * Discharge Patient to appropriate Phase II area if PAR is 8 or greater or return to pre- procedure baseline. The post - procedure orders will be as directed. * If PAR score is less than 8 or not return to pre-procedure baseline then patient will follow Phase I monitoring till PAR is reached for Phase II. The Phase I may be done in procedure room or may call to secure a Phase I area. * If naloxone or flumazenil are used for reversal, hold in Phase I for an additional 60 -120 minutes before discharge to Phase II. Please call the Sedation Physician to re-evaluate and complete post-note for discharge to Phase II area. Do NOT discharge from procedure sedation or Phase 1 until post- sedation evaluation note is complete by procedure /sedation MD Sedation Discharge Instructions to be given to the patient at discharge to home.
--- NOTE | 2017-12-23 09:45 | [facility] Operative Report ---
Operative Report Operative Date Dec 23, 2017. Pre-Operative Diagnosis Chronic venous insufficiency Post-Operative Diagnosis Chronic venous insufficiency Procedure(s) Performed Left GSV RF ablation Surgeon Haq Estimated Blood Loss 5 Findings Dilated left GSV with varicies Drains None Anesthesia Local Complication(s) None Disposition PCU Indications Venous insufficiency/Ulcerations Description of Procedure US guided access Left GSV below the knee. Was unable to pass catheter proximally so access obtained in Left GSV above the Knee. Catheter inserted, 2.3 cm from SFJ. Tumescent injected. US confirmed not in deep system. 2:40, 8 cycles of RFA left GSV. No complications. Patient tolerated well. US confirmed no DVT post procedure. SUMMARY: 1. Well tolerated left GSV RF ablation. I attest to the content of the Intraoperative Record and any orders documented therein. Any exceptions are noted below.
--- NOTE | 2017-12-23 09:46 | Discharge Instructions ---
Discharge Instructions Procedure Procedure Date: Dec 23, 2017. Reason for Visit: Venous Insufficiency. Discharge Discharge Date: Dec 23, 2017. Discharge Diagnosis: Venous Insufficiency Last Recorded Wt (Kilograms): 104 Anesthesia Post Anesthesia Instructions: Instructions Activity Recommendations: resume regular activity Recommended Home Diet: resume previous diet Allergies: Coded Allergies: Vancomycin (Verified Allergy, Severe, HIVES, 12/23/17) Ampicillin (Verified Allergy, Unknown, rash, 12/23/17) Sulbactam (Verified Allergy, Unknown, rash, 12/23/17) Follow Up Additional Instructions: Follow instructions as outlined in paperwork from Dr. Haq' office. Up walking today. Follow up Ultrasound as scheduled. LOIDA wrap until scheduled ultrasound Post ultrasound wear compressive dressings indefinitely. Any severe pain, present to the emergency room for evaluation for DVT. Follow-up with: As scheduled Rashida Portillo Recommendations: Call your doctor if: * Temperature above 101 degrees * Pain not relieved by pain medicine ordered * There is increased drainage or redness from any incision * You have any unanswered questions or concerns. Your Doctors Instructions noted above were prepared by provider David Haq. Patient Signature Section: Patient Instructions Signature Page Ozzie Ulloa Patient (or Guardian) Signature/Date: I have read and understand the instructions given to me by my caregivers. Caregiver/RN/Doctor Signature/Date: The above-named patient and/or guardian has received patient instructions on this date. + Original Patient Signature Page (only) stays with chart. Please make copy for patient.
[2017-12-23 09:55] VITALS: BP 175/89; PULSE 53; TEMP 36.8; O2SAT 98
== END | disposition home or self-care (01) ==
LOC: C.ACU 06:24
PROVIDERS: ATTEND Internal Medicine Interventional Cardiology
DX: I87.2 Venous insufficiency (chronic) (peripheral) (principal); I83.92 Asymptomatic varicose veins of left lower extremity; I11.0 Hypertensive heart disease with heart failure; I50.32 Chronic diastolic (congestive) heart failure; I48.2 Chronic atrial fibrillation; G60.0 Hereditary motor and sensory neuropathy; K21.9 Gastro-esophageal reflux disease without esophagitis; Z79.82 Long term (current) use of aspirin

== ENCOUNTER → 2018-01-21 | Outpatient (CLI) | payer OTHER ==
[~2018-01-21] MED LIST changes: -FENTANYL CITRATE INJ 50 MCG/1 ML 2 ML VIAL ONE; -LIDOCAINE HCL 1% 20 ML VIAL INJ ONE; -LIDOCAINE HCL 1% 20 ML VIAL ONE; -LIDOCAINE/EPINEPHRINE 1% INJ 50 ML VIAL ONE; -MIDAZOLAM HCL 1 MG/ML 2ML VIAL ONE; -ORM MISCELLANEOUS MED XX ONE; -SODIUM BICARB 8.4% INJ 50 MEQ/50 ML SYR IV ONE
[2018-01-21 12:05] LABS: BASO % 0.2 %; BASO ABS # 0.01 K/uL (0-0.2); EOS % 6.2 %; EOS ABS # 0.31 K/uL (0-0.5); HEMATOCRIT 36.3 % (42-52); HEMOGLOBIN 12.6 g/dL (14.0-18.0); IG# 0.02 K/uL (0.00-0.02); LYMPH % 17.9 %; MEAN CELL VOLUME 85.2 fL (80-100); MEAN CORPUSCULAR HEMOGLOBIN 29.6 pg (25-34); MEAN CORPUSCULAR HGB CONC 34.7 g/dl (32-36); MONO % 11.3 %; MONO ABS # 0.57 K/uL (0.11-0.59); NEUT ABS # 3.23 K/uL (1.4-6.5); PLATELET COUNT 216 K/uL (130-400); RED CELL DISTRIBUTION WIDTH CV 15.1 % (11.5-14.5); WHITE BLOOD COUNT 5.04 K/uL (4.8-10.8)
[2018-01-21 12:29] LABS: ALBUMIN 3.5 gm/dl (3.4-5.0); ALT/SGPT 16 U/L (12-78); AST/SGOT 20 U/L (15-37); BLOOD UREA NITROGEN 16 mg/dl (7-18); CALCIUM 8.8 mg/dl (8.5-10.1); CARBON DIOXIDE 29 mmol/L (21-32); CREATININE 0.84 mg/dl (0.60-1.40); GLUCOSE 98 mg/dl (70-99); POTASSIUM 4.2 mmol/L (3.5-5.1); SODIUM 121 mmol/L (136-145)
[2018-01-21 12:40] LABS: ALKALINE PHOSPHATASE 87 U/L (45-117); TOTAL PROTEIN 8.5 gm/dl (6.4-8.2)
== END | disposition home or self-care (01) ==
LOC: C.LAB1850 09:26
PROVIDERS: ATTEND Internal Medicine
DX: R19.7 Diarrhea, unspecified (principal); K59.9 Functional intestinal disorder, unspecified

== ENCOUNTER → 2018-03-30 | Outpatient (CLI) | payer OTHER ==
[~2018-03-30] MED LIST changes: -DXY100 PO
[2018-03-30 13:12] LABS: BASO % 0.4 %; BASO ABS # 0.02 K/uL (0-0.2); EOS % 3.7 %; EOS ABS # 0.17 K/uL (0-0.5); HEMATOCRIT 34.9 % (42-52); HEMOGLOBIN 11.9 g/dL (14.0-18.0); IG# 0.02 K/uL (0.00-0.02); LYMPH % 21.1 %; LYMPH ABS # 0.96 K/uL (1.2-3.4); MEAN CELL VOLUME 90.2 fL (80-100); MEAN CORPUSCULAR HEMOGLOBIN 30.7 pg (25-34); MEAN CORPUSCULAR HGB CONC 34.1 g/dl (32-36); MEAN PLATELET VOLUME 8.6 fL (7.4-10.4); MONO % 11.9 %; MONO ABS # 0.54 K/uL (0.11-0.59); NEUT % 62.5 %; NEUT ABS # 2.83 K/uL (1.4-6.5); PLATELET COUNT 253 K/uL (130-400); RED CELL DISTRIBUTION WIDTH CV 14.6 % (11.5-14.5); RED CELL DISTRIBUTION WIDTH SD 47.7 fL (36.4-46.3); WHITE BLOOD COUNT 4.54 K/uL (4.8-10.8)
[2018-03-30 14:09] LABS: ALBUMIN 3.5 gm/dl (3.4-5.0); ALT/SGPT 16 U/L (12-78); AST/SGOT 18 U/L (15-37); BLOOD UREA NITROGEN 13 mg/dl (7-18); CALCIUM 8.8 mg/dl (8.5-10.1); CARBON DIOXIDE 28 mmol/L (21-32); CHOLESTEROL 111 mg/dl (0-200); CREATININE 0.81 mg/dl (0.60-1.40); GLUCOSE 86 mg/dl (70-99); POTASSIUM 4.9 mmol/L (3.5-5.1); SODIUM 124 mmol/L (136-145)
[2018-03-30 14:13] LABS: ALKALINE PHOSPHATASE 82 U/L (45-117); LDL CHOLESTEROL CALCULATED 27 mg/dl; TOTAL PROTEIN 8.1 gm/dl (6.4-8.2); TRANSFERRIN 251 mg/dl (200-360)
== END | disposition home or self-care (01) ==
LOC: C.LABMFLN 08:39
PROVIDERS: ATTEND Family Medicine
DX: I48.91 Unspecified atrial fibrillation (principal); I11.0 Hypertensive heart disease with heart failure; E87.1 Hypo-osmolality and hyponatremia; D50.9 Iron deficiency anemia, unspecified; I50.32 Chronic diastolic (congestive) heart failure

== ENCOUNTER → 2018-07-14 | Outpatient (CLI) | payer OTHER ==
[~2018-07-14] MED LIST changes: +CLBPO15 TOP; +MISO200T PO; +NTRGSL/4 SL; +SILD100T PO; +TRMO115 TOP; +ZOST50IN
[2018-07-14 13:11] LABS: BLOOD UREA NITROGEN 15 mg/dl (7-18); CREATININE 0.82 mg/dl (0.60-1.40); GLUCOSE 74 mg/dl (70-99)
[2018-07-14 13:12] LABS: CALCIUM 8.6 mg/dl (8.5-10.1); CARBON DIOXIDE 27 mmol/L (21-32); POTASSIUM 4.6 mmol/L (3.5-5.1); SODIUM 118 mmol/L (136-145)
== END | disposition home or self-care (01) ==
LOC: C.LABMFLN 09:02
PROVIDERS: ATTEND Family Medicine
DX: E87.1 Hypo-osmolality and hyponatremia (principal)

== ENCOUNTER → 2018-07-25 | Outpatient (CLI) | payer OTHER ==
[2018-07-25 12:53] LABS: BLOOD UREA NITROGEN 11 mg/dl (7-18); CALCIUM 8.4 mg/dl (8.5-10.1); CARBON DIOXIDE 28 mmol/L (21-32); GLUCOSE 83 mg/dl (70-99); SODIUM 125 mmol/L (136-145)
== END | disposition home or self-care (01) ==
LOC: C.LABMFLN 09:33
PROVIDERS: ATTEND Family Medicine
DX: E87.1 Hypo-osmolality and hyponatremia (principal)